=== PATIENT | male | born 1995 | race Caucasian/White ===

== ENCOUNTER 2017-02-17 14:59 | Emergency (ER) | payer OTHER ==
[2017-02-17 15:05] VITALS: BP 143/86
[2017-02-17] MEDS ORDERED: DIPH25CA58 PO (15:25)
[2017-02-17] MEDS ORDERED: PRED20TA PO (15:25)
[2017-02-17] MEDS ORDERED: DEXAMETHASONE SOD PHOS 10 MG/ML VIAL ONE (15:27)
[2017-02-17] MEDS ORDERED: DEXAMETHASONE SOD PHOS 4 MG/ML VIAL PO ONE (15:50)
--- NOTE | 2017-02-17 19:32 | ED.ADGEN ---
Past History Past Medical History: No Pertinent History Past Surgical History: No Surgical History Alcohol Use: Occasionally Drug Use: None Adult General HPI HPI Patient is a 21-year-old man, with no significant past no history, vaccinations are up-to-date, who presents to the emergency department with complaint of a persistent rash on his forearms over the past 2 weeks. Patient states that he first noted the rash after he was clearing brush from [place] He states that the rash will wax and wane, but constantly present in certain areas in his forearms. He has not taken any medication for this today. He states that he has been using Benadryl intermittently at home without relief , but was extremely itchy today. Noted to have grouped erythematous lesions on the extensor surfaces of his forearms, and also some on the flexor surfaces of his upper arms. No other areas of rash, no fevers or chills, no drainage, no mucosal involvement, no chest pain, shortness of breath, denies any ingestions or other exposures. Denies similar symptoms previously. Review of Systems Review of Systems Constitutional: Denies fever or chills [] Eyes: Denies change in visual acuity, redness, or eye pain [] HENT: Denies nasal congestion or sore throat [] Respiratory: Denies cough or shortness of breath [] Cardiovascular: No additional information not addressed in HPI [] GI: Denies abdominal pain, nausea, vomiting, bloody stools or diarrhea [] : Denies dysuria or hematuria [] Musculoskeletal: Denies back pain or joint pain [] Integument: Rash on upper arms. Neurologic: Denies headache, focal weakness or sensory changes [] Endocrine: Denies polyuria or polydipsia [] Current Medications Current Medications Current Medications Medications (Trade) Dose Ordered Sig/Anjel Start Time Stop Time Status Last Admin Dose Admin Dexamethasone Sodium Phosphate (Decadron) 10 mg STK-MED ONCE 02/17/17 15:27 02/17/17 15:28 DC Allergies Allergies Allergies Coded Allergies Type Severity Reaction Last Updated Verified Penicillins Allergy Unknown 02/17/17 Yes Physical Exam Physical Exam Constitutional: Well developed, well nourished, no acute distress, non-toxic appearance. [] HENT: Normocephalic, atraumatic, bilateral external ears normal, oropharynx moist, no oral exudates, nose normal. [] Eyes: PERRLA, EOMI, conjunctiva normal, no discharge. [] Neck: Normal range of motion, no tenderness, supple, no stridor. [] Cardiovascular:Heart rate regular rhythm, no murmur , S1, S2, no rubs or gallops. [] Lungs & Thorax: Bilateral breath sounds clear to auscultation, no wheezing, rhonchi, rales. No chest wall crepitus or tenderness. [] Abdomen: Bowel sounds normal, soft, no tenderness, no masses, no pulsatile masses. [] Skin: Warm, dry, no erythema, patient with scattered areas of maculopapular red rash, urticarial type lesions located in the extensor surfaces and flexor sugars as it was upper forearms. There is no surrounding erythema or induration or evidence of abscess ratio infection.. [] Back: No tenderness, no CVA tenderness. [] Extremities: No tenderness, no cyanosis, no clubbing, ROM intact, no edema. [] Neurologic: Alert and oriented X 3, normal motor function, normal sensory function, no focal deficits noted. [] Psychologic: Affect normal, judgement normal, mood normal. [] Current Patient Data Vital Signs Vital Signs Date Time Temp Pulse Resp B/P (MAP) Pulse Ox O2 Delivery O2 Flow Rate FiO2 02/17/17 15:05 98.0 61 18 98 Room Air EKG EKG Not indicated. [] Radiology/Procedures Radiology/Procedures Not indicated. [] Course & Med Decision Making Course & Med Decision Making Pertinent Labs and Imaging studies reviewed. (See chart for details) Patient with scattered areas of urticaria, which are consistent with contact patterns especially when area on his right forearm where there appears to be a linear line consistent with a scratch. There is no evidence of superficial infection or other concerning findings on examination or history. Patient was given a dose of Decadron in the emergency department, and written a prescription for a steroid burst. Patient states that [place] has not yet established a primary care provider. He is in the process of doing this so we will do follow-up with dermatology if symptoms persist, and will see a primary care provider for reevaluation next week. I did discuss concerning symptoms that would prompt return with the patient, and the medication use and precautions regarding a prednisone burst, and Benadryl. Patient voiced understanding and agreement with instructions and precautions, discharged home in stable condition with plan as above. Final Impression Final Impression [] Problems: Dragon Disclaimer Dragon Disclaimer This electronic medical record was generated, in whole or in part, using a voice recognition dictation system. Departure: Impression: Primary Impression: Rash Disposition: HOME, SELF-CARE Condition: IMPROVED Scripts Diphenhydramine Hcl (BENADRYL) 25 Mg Capsule 25 MG PO PRN Q6-8HRS Y for ITCHING, #15 CAP Prov: DAMEON BARTHOLOMEW DO 02/17/17 Prednisone (PREDNISONE) 20 Mg Tablet 2 TAB PO DAILY06, #8 TAB Take to tablets by mouth once daily in the morning with food for 4 days. Prov: DAMOEN BARTHOLOMEW DO 02/17/17 DAMEON BARTHOLOMEW DO Feb 17, 2017 19:32
== END 2017-02-17 15:30 | disposition home or self-care (01) ==
LOC: ER 14:59
DX: R21 Rash and other nonspecific skin eruption (principal); Z88.0 Allergy status to penicillin
CPT/HCPCS: 99283; J1100